=== PATIENT | male | born 1980 | race Caucasian/White ===

== ENCOUNTER 2017-03-19 11:19 | Emergency (ER) | payer BC ==
[2017-03-19 11:30] VITALS: BP 150/89
--- NOTE | 2017-03-19 12:11 | EDM.PDOC ---
ED HPI GENERAL MEDICAL PROBLEM - General Chief Complaint: Lower Extremity Injury/Pain Stated Complaint: RIGHT LEG INJURY Time Seen by Provider: 03/19/17 11:56 Source of Information: Reports: Patient History Limitations: Reports: No Limitations - History of Present Illness INITIAL COMMENTS - FREE TEXT/NARRATIVE: 36-year-old male presents for evaluation and treatment of an injury to be right leg. Patient reports that he was playing softball on Saturday, March 13. He states that he was attempting to jump and catch a fly ball. He states while jumping he felt a pop and felt excruciating pain in his posterior right leg. He states since then he is post extensive bruising, swelling and pain. Reports pain with walking. He has continued to go to work. He reports that end of the workday his leg, knee and lower leg have extensive swelling. Patient also reports some minor numbness and tingling into the right lower leg. No trauma to the left leg. Patient is otherwise healthy with no known medical conditions. Location: Reports: Lower Extremity, Right Context: Reports: Activity Right Posterior Leg Pain Score (Numeric/FACES): 4 - Related Data Allergies Allergy/AdvReac Type Severity Reaction Status Date / Time No Known Allergies Allergy Verified 11/07/16 17:27 Home Meds: Home Meds Acetaminophen/HYDROcodone [[place] 325-5 MG] 1 tab PO Q6H PRN #20 tablet 03/19/17 [Rx] Past Medical History - Past Surgical History GI Surgical History: Reports: Appendectomy Musculoskeletal Surgical History: Reports: Other (See Below) Other Musculoskeletal Surgeries/Procedures:: right hand fractured Social & Family History - Tobacco Use Smoking Status *Q: Current Every Day Smoker Years of Tobacco use: 3 Packs/Tins Daily: 1 - Caffeine Use Caffeine Use: Reports: Energy Drinks, Tea - Recreational Drug Use Recreational Drug Use: No Review of Systems - Review of Systems Review Of Systems: See Below Musculoskeletal: Reports: Other (right distal leg and right proximal lower leg swelling) Skin: Reports: Bruising (right posterior leg; distal thigh to proximal lower leg ) Neurological: Reports: Numbness, Tingling (right leg), Difficulty Walking Trauma Exam - Physical Exam Exam: See Below Exam Limited By: No Limitations General Appearance: Reports: Alert, WD/WN, No Apparent Distress Respiratory Exam: Reports: No Respiratory Distress, Lungs Clear, Normal Breath Sounds Cardiovascular: Reports: Normal Peripheral Pulses, Regular Rate, Rhythm, No Murmur Extremities: Pain with Movement (with hip flexion and extension; no pain wiht hip adduction and aduction; pain with flexion of the right knee), Tenderness ( greatest to the posterior right leg) Neurologic: Reports: Alert, Normal Mood/Affect Skin: Reports: Normal Color, Warm/Dry, Ecchymosis (extensive ecchymosis to the posterior right leg and proximal right lower leg) Course - Vital Signs Last Recorded V/S: Last Vital Signs Temp 36.9 C 03/19/17 11:29 Pulse 77 03/19/17 11:29 Resp 20 03/19/17 11:29 BP 150/89 H 03/19/17 11:29 Pulse Ox 100 03/19/17 11:29 - Re-Assessments/Exams Free Text/Narrative Re-Assessment/Exam: 03/19/17 12:10 I feel the patient likely ruptured his right hamstrings. We will obtain an MRI to further evaluate and have him follow up with orthopedics. Medication provided for pain. Instructed to ice, rest and elevate. I would prefer that he be off work but it does not like this is possible. Discharge home. Instructions as documented. Departure - Departure Time of Disposition: 12:14 Disposition: Home, Self-Care 01 Condition: fair Clinical Impression: Hamstring tear - Discharge Information Prescriptions: Acetaminophen/HYDROcodone [[place] 325-5 MG] 1 tab PO Q6H PRN #20 tablet PRN Reason: Pain Instructions: Hamstring Strain Referrals: PCP,None [Primary Care Provider] - Hector Treviño MD [Physician] - Forms: ED Department Discharge Additional Instructions: Ice the leg 4-5 times a day for 10-15 minutes. Elevate the leg as much as possible. Rest, off the leg as much as possible. MRI right leg scheduled for 03-21-17 2pm. Please call [phone] if your need to reschedule. Follow-up with Dr. Treviño within 1 week for further eval and MRI results. Call [phone] to schedule with him. OTC ibuprofen for pain. For pain not relieved by ibuprofen use norco 1-2 tabs PO every 4-6 hour prn pain. Do not drive or operate machinery within 12 hours of taking the norco. [place] can be habit forming, I recommend you take as few of theses as needed to control your pain. Please return to the ER should your symptoms change or worsen.
== END 2017-03-19 12:36 | disposition home or self-care (01) ==
LOC: JD.ED 11:19
DX: S76.311A Strain of muscle, fascia and tendon of the posterior muscle group at thigh level, right thigh, initial encounter (principal); F17.210 Nicotine dependence, cigarettes, uncomplicated; Z90.49 Acquired absence of other specified parts of digestive tract; Z98.890 Other specified postprocedural states; X58.XXXA Exposure to other specified factors, initial encounter; Y93.64 Activity, baseball
CPT/HCPCS: 99283